=== PATIENT | male | born 1955 | race Caucasian/White ===

== ENCOUNTER 2017-03-21 14:50 | Inpatient (IN) | payer BC ==
[~2017-03-21] VITALS: Ht 175.3 cm; Wt 127.4 kg
[~2017-03-21 14:50] MED LIST: ADVAIR 100/501 DISK IH; ALBUTEROL SULF8.5 GM IH; BENADRYL25 MG PO; COMBIVENT RESPIM4 GM IH; Cardizem CD,Cartia X PO; DAILY VALUE1 EACH PO; ESSENTIAL DAIL1 EACH PO; FLOMAX0.4 MG PO; FUROSEMIDE40 MG PO; GABAPENTIN100 MG PO; GLUCOPHAGE1000 MG PO; GLUCOPHAGE500 MG PO; Glucophage PO; KLOR-CON 1010 ME1 PO; LANOXIN,DIGI0.125 MG PO; LANTUS 3 M100 UNITS/ SC; LANTUS 3 M100 UNITS1 SC; LASIX20 MG PO; LEVEMIR100 UNIT/2 SC; LITE COAT ASPI325 M1 PO; LOPRESSOR25 MG PO; LOPRESSOR50 MG PO; NEURONTIN300 MG PO; PACERONE200 M1 PO; PAXIL10 MG PO; PERCOCET 5/31 TABLET PO; PRADAXA150 MG PO; PRANDIN1 MG PO; PROTONIX20 MG PO; Percocet 5/325,Endoc PO; ROXICODONE5 MG PO; SIMVASTATIN40 MG PO; TRAZODONE HCL50 MG PO; Tylenol Regular Stre PO; XANAX0.25 MG PO; XANAX0.5 MG PO; ZESTRIL,PRINIVI10 M1 PO; ZESTRIL,PRINIVI40 MG PO; ZESTRIL10 MG PO; ZITHROMAX500 MG PO
[2017-03-21 16:02] LABS: BASE EXCESS -1.7 mEq/L (-3 to +3); BICARBONATE 24.3 mEq/L (22-26); CARBOXY HGB 2.9 % (0-5); PCO2 45 mm Hg (35-45); pH 7.34 (7.35-7.45)
[2017-03-21 16:05] LABS: COMMENTS - BLOOD GASES A+C+; SITE LR
[2017-03-21 16:11] LABS: DEVICE NC; O2 FLOW 4 L/MIN
[2017-03-21 16:17] LABS: EOSINOPHIL (%) 0.8 % (0-5); HEMATOCRIT 38.7 % (38.0-50.0); IMMATURE GRANULOCYTE (%) 0.8 % (0.0-0.7); INSTRUMENT ABS NEUTROPHIL CT 3.7 K/uL; LYMPHOCYTE COUNT 0.7 K/uL (1.0-2.8); MCHC 31.5 G/DL (30.0-36.0); MCV 101.6 FL (86-99); MONOCYTE (%) 6.4 % (3-12); MONOCYTE COUNT 0.3 K/uL (0-0.8); NEUTROPHIL (%) 76.9 % (45-76); NEUTROPHIL COUNT 3.7 K/uL (1.8-6.4); PLATELET COUNT 100 K/uL (156-360); RBC DIS.WIDTH-CV 12.9 % (11.8-14.6); RBC DIS.WIDTH-SD 47.9 % (39-53); RED BLOOD COUNT 3.81 M/uL (4.00-5.50); WHITE BLOOD COUNT 4.8 K/uL (4.1-10.2)
[2017-03-21 16:29] LABS: CHLORIDE 109 mEq/L (99-109); POTASSIUM 5.7 mEq/L (3.7-5.4); SODIUM 140 mEq/L (136-147)
[2017-03-21 16:30] LABS: INTER. NORMALIZED RATIO 1.2
[2017-03-21 16:31] LABS: GLUCOSE 371 mg/dL (70-99)
[2017-03-21 16:32] LABS: ANION GAP 8 MEQ/L (2-14); PTT 29.9 SEC (25-37)
[2017-03-21 16:35] LABS: GFR ESTIMATE (CALCULATED) > 59 mL/min/; UREA NITROGEN (BUN) 32 mg/dL (9-23)
[2017-03-21 16:39] LABS: TROP-I INTERPRETATION NEGATIVE; TROPONIN-I 0.02 ng/mL (0.0-0.30)
[2017-03-21] MEDS ORDERED: VENTOLIN HFA18 GM IH (17:46)
[2017-03-21] MEDS ORDERED: LYRICA75 MG PO (17:46)
[2017-03-21 20:00] VITALS: BP 116/55
[2017-03-21 20:27] LABS: TROP-I INTERPRETATION NEGATIVE; TROPONIN-I 0.03 ng/mL (0.0-0.30)
[2017-03-21 22:24] LABS: POINT-OF-CARE METER ID UU14208750
[2017-03-22] VITALS (7 sets, daily range): BP systolic 112–180; BP diastolic 46–85
[2017-03-22 02:16] LABS: TROP-I INTERPRETATION NEGATIVE; TROPONIN-I 0.04 ng/mL (0.0-0.30)
[2017-03-22 06:39] LABS: POINT-OF-CARE METER ID UU14314084
[2017-03-22 07:12] LABS: HEMATOCRIT 38.9 % (38.0-50.0); MCH 31.2 PG (29.0-34.0); MCHC 30.1 G/DL (30.0-36.0); MCV 103.7 FL (86-99); PLATELET COUNT 103 K/uL (156-360); RBC DIS.WIDTH-CV 12.8 % (11.8-14.6); RBC DIS.WIDTH-SD 48.8 % (39-53); RED BLOOD COUNT 3.75 M/uL (4.00-5.50); WHITE BLOOD COUNT 5.8 K/uL (4.1-10.2)
[2017-03-22 07:30] LABS: ANION GAP 8 MEQ/L (2-14); CHLORIDE 106 MEQ/L (99-109); GFR ESTIMATE (CALCULATED) > 59 mL/min/; GLUCOSE 165 mg/dL (70-99); POTASSIUM 4.4 MEQ/L (3.7-5.4); SAMPLE HEMOLYSIS CHECK 0; SAMPLE ICTERIC CHECK 0; SAMPLE LIPEMIA CHECK 0; SODIUM 140 MEQ/L (136-147); UREA NITROGEN (BUN) 25 mg/dL (9-23)
[2017-03-22 09:36] LABS: ADD MIUA? YES; BILIRUBIN NEGATIVE; BLOOD SMALL; COLOR YELLOW ((YELLOW)); GLUCOSE (STRIP) 50; KETONES NEGATIVE; LEUKOCYTES NEGATIVE; NITRITE NEGATIVE; PROTEIN (STRIP) 30; SPECIFIC GRAVITY 1.012 (1.000-1.030); UROBILINOGEN 0.2 MG/DL (0.2-1.0)
[2017-03-22 09:40] LABS: BACTERIA NONE SEEN /HPF; EPITHELIAL CELLS RARE /HPF; MUCUS TRACE /LPF; RED BLOOD CELLS 0-5 /HPF (0-5); UCUL ADDED? NO; WHITE BLOOD CELLS 0-5 /HPF (0-5)
[2017-03-22 10:01] LABS: INTER. NORMALIZED RATIO 1.2; PROTHROMBIN TIME 13.5 SEC (10.2-12.9)
[2017-03-22 10:04] LABS: PTT 28.8 SEC (25-37)
[2017-03-22 11:50] LABS: POINT-OF-CARE METER ID UU14208750; POINT-OF-CARE USER ID PUTDRM
[2017-03-22 16:16] LABS: POINT-OF-CARE METER ID UU13113698
[2017-03-22 20:45] LABS: POINT-OF-CARE METER ID UU13113698
[2017-03-23 04:00] VITALS: BP 101/54
[2017-03-23 05:47] LABS: EOSINOPHIL (%) 2.1 % (0-5); EOSINOPHIL COUNT 0.1 K/uL (0-0.3); HEMATOCRIT 39.6 % (38.0-50.0); IMMATURE GRANULOCYTE (%) 0.7 % (0.0-0.7); INSTRUMENT ABS NEUTROPHIL CT 3.9 K/uL; LYMPHOCYTE COUNT 0.9 K/uL (1.0-2.8); MCH 33.3 PG (29.0-34.0); MCHC 32.3 G/DL (30.0-36.0); MCV 103.1 FL (86-99); MONOCYTE COUNT 0.6 K/uL (0-0.8); NEUTROPHIL (%) 69.8 % (45-76); NEUTROPHIL COUNT 3.9 K/uL (1.8-6.4); PLATELET COUNT 109 K/uL (156-360); RBC DIS.WIDTH-CV 13.1 % (11.8-14.6); RED BLOOD COUNT 3.84 M/uL (4.00-5.50); WHITE BLOOD COUNT 5.6 K/uL (4.1-10.2)
[2017-03-23 06:15] LABS: ALKALINE PHOSPHATASE 202 IU/L (3-129); ANION GAP 7 MEQ/L (2-14); CHLORIDE 103 MEQ/L (99-109); GFR ESTIMATE (CALCULATED) > 59 mL/min/; GLUCOSE 156 mg/dL (70-99); POTASSIUM 4.2 MEQ/L (3.7-5.4); SAMPLE HEMOLYSIS CHECK 0; SAMPLE ICTERIC CHECK 0; SAMPLE LIPEMIA CHECK 0; SODIUM 141 MEQ/L (136-147); UREA NITROGEN (BUN) 20 mg/dL (9-23)
[2017-03-23 07:18] VITALS: BP 129/61
[2017-03-23 07:56] LABS: POINT-OF-CARE METER ID UU13113698; POINT-OF-CARE USER ID NUTSLF44
[2017-03-23 11:15] VITALS: BP 137/60
[2017-03-23 11:22] LABS: POINT-OF-CARE METER ID UU14174216; POINT-OF-CARE USER ID NUTSLF44
[2017-03-23 16:15] VITALS: BP 170/67
[2017-03-23 16:54] LABS: POINT-OF-CARE METER ID UU13113781; POINT-OF-CARE USER ID NUTSLF44
[2017-03-23 20:15] VITALS: BP 166/72
[2017-03-23 22:02] LABS: POINT-OF-CARE METER ID UU13113781
[2017-03-23 23:00] VITALS: BP 139/64
[2017-03-24 03:30] VITALS: BP 120/61
[2017-03-24 05:20] LABS: BASOPHIL COUNT 0.1 K/uL (0-0.1); EOSINOPHIL (%) 1.8 % (0-5); EOSINOPHIL COUNT 0.1 K/uL (0-0.3); HEMATOCRIT 40.3 % (38.0-50.0); IMMATURE GRANULOCYTE (%) 0.5 % (0.0-0.7); INSTRUMENT ABS NEUTROPHIL CT 4.4 K/uL; LYMPHOCYTE COUNT 0.9 K/uL (1.0-2.8); MCH 31.6 PG (29.0-34.0); MCV 101.8 FL (86-99); MEAN PLAT.VOLUME 11.6 uM^3 (9.0-12.4); MONOCYTE (%) 10.5 % (3-12); MONOCYTE COUNT 0.7 K/uL (0-0.8); NEUTROPHIL (%) 71.7 % (45-76); NEUTROPHIL COUNT 4.4 K/uL (1.8-6.4); PLATELET COUNT 121 K/uL (156-360); RBC DIS.WIDTH-SD 48.6 % (39-53); RED BLOOD COUNT 3.96 M/uL (4.00-5.50); WHITE BLOOD COUNT 6.2 K/uL (4.1-10.2)
[2017-03-24 05:45] LABS: ANION GAP 9 MEQ/L (2-14); CHLORIDE 99 MEQ/L (99-109); GFR ESTIMATE (CALCULATED) > 59 mL/min/; GLUCOSE 154 mg/dL (70-99); POTASSIUM 4.3 MEQ/L (3.7-5.4); SAMPLE HEMOLYSIS CHECK 0; SAMPLE ICTERIC CHECK 0; SAMPLE LIPEMIA CHECK 0; SODIUM 139 MEQ/L (136-147); UREA NITROGEN (BUN) 22 mg/dL (9-23)
[2017-03-24 07:09] VITALS: BP 124/75
[2017-03-24 08:09] LABS: POINT-OF-CARE METER ID UU13113781
[2017-03-24 11:03] LABS: POINT-OF-CARE METER ID UU13113781
[2017-03-24 11:56] VITALS: BP 121/74
[2017-03-24 15:53] VITALS: BP 149/77
[2017-03-24 16:05] LABS: POINT-OF-CARE METER ID UU13113781
[2017-03-24 19:00] VITALS: BP 146/74
[2017-03-24 21:15] LABS: POINT-OF-CARE METER ID UU13113781
[2017-03-24 23:34] VITALS: BP 117/60
[2017-03-25 04:25] VITALS: BP 115/71
[2017-03-25 07:01] VITALS: BP 107/62
[2017-03-25 08:19] LABS: POINT-OF-CARE METER ID UU14314088
[2017-03-25 11:26] VITALS: BP 121/59
[2017-03-25 11:41] LABS: POINT-OF-CARE METER ID UU14314088
[2017-03-25 15:53] VITALS: BP 118/58
[2017-03-25 17:01] LABS: POINT-OF-CARE METER ID UU13113781
[2017-03-25 19:15] VITALS: BP 139/64
[2017-03-25 20:40] LABS: POINT-OF-CARE METER ID UU14174216
[2017-03-26] VITALS (7 sets, daily range): BP systolic 124–148; BP diastolic 56–91
[2017-03-26 05:48] LABS: MCH 33.3 PG (29.0-34.0); MCHC 32.4 G/DL (30.0-36.0); MCV 102.5 FL (86-99); MEAN PLAT.VOLUME 11.9 uM^3 (9.0-12.4); PLATELET COUNT 138 K/uL (156-360); RBC DIS.WIDTH-CV 12.8 % (11.8-14.6); RBC DIS.WIDTH-SD 47.8 % (39-53)
[2017-03-26 06:11] LABS: ANION GAP 10 MEQ/L (2-14); CHLORIDE 96 MEQ/L (99-109); GFR ESTIMATE (CALCULATED) > 59 mL/min/; GLUCOSE 180 mg/dL (70-99); POTASSIUM 4.7 MEQ/L (3.7-5.4); SAMPLE HEMOLYSIS CHECK 0; SAMPLE ICTERIC CHECK 0; SAMPLE LIPEMIA CHECK 0; SODIUM 137 MEQ/L (136-147); UREA NITROGEN (BUN) 31 mg/dL (9-23)
[2017-03-26 07:38] LABS: POINT-OF-CARE METER ID UU14174216
[2017-03-26 11:14] LABS: POINT-OF-CARE METER ID UU14314088
[2017-03-26 16:32] LABS: POINT-OF-CARE METER ID UU14314088
[2017-03-26 21:29] LABS: POINT-OF-CARE METER ID UU14314088
[2017-03-27 03:21] VITALS: BP 95/60
[2017-03-27 06:02] LABS: ANION GAP 11 MEQ/L (2-14); CHLORIDE 94 MEQ/L (99-109); GFR ESTIMATE (CALCULATED) > 59 mL/min/; GLUCOSE 158 mg/dL (70-99); POTASSIUM 4.8 MEQ/L (3.7-5.4); SAMPLE HEMOLYSIS CHECK 0; SAMPLE ICTERIC CHECK 0; SAMPLE LIPEMIA CHECK 0; SODIUM 136 MEQ/L (136-147); UREA NITROGEN (BUN) 32 mg/dL (9-23)
[2017-03-27 08:00] LABS: POINT-OF-CARE METER ID UU14314088
[2017-03-27 08:12] VITALS: BP 105/58
[2017-03-27 11:35] LABS: POINT-OF-CARE METER ID UU14174216; POINT-OF-CARE USER ID ENVKC36
[2017-03-27 11:54] VITALS: BP 120/65
[2017-03-27 15:59] VITALS: BP 108/63
[2017-03-27 16:28] LABS: POINT-OF-CARE METER ID UU14314088; POINT-OF-CARE USER ID ENVKC36
[2017-03-27 19:20] VITALS: BP 111/68
[2017-03-27 21:11] LABS: POINT-OF-CARE METER ID UU14174216
[2017-03-28] VITALS: BP 98/55
[2017-03-28 03:55] VITALS: BP 118/58
[2017-03-28 05:42] LABS: MCHC 31.8 G/DL (30.0-36.0); MCV 100.5 FL (86-99); MEAN PLAT.VOLUME 11.4 uM^3 (9.0-12.4); PLATELET COUNT 151 K/uL (156-360); RBC DIS.WIDTH-CV 12.6 % (11.8-14.6); RBC DIS.WIDTH-SD 47.2 % (39-53); RED BLOOD COUNT 3.88 M/uL (4.00-5.50); WHITE BLOOD COUNT 6.8 K/uL (4.1-10.2)
[2017-03-28 07:57] LABS: POINT-OF-CARE METER ID UU13113698
[2017-03-28 08:18] VITALS: BP 132/72
[2017-03-28 11:30] VITALS: BP 114/58
[2017-03-28 11:39] LABS: POINT-OF-CARE METER ID UU14174216
[2017-03-28 16:13] LABS: POINT-OF-CARE METER ID UU14314088
[2017-03-28 17:25] VITALS: BP 108/62
[2017-03-28 19:15] VITALS: BP 117/60
[2017-03-28 21:11] LABS: POINT-OF-CARE METER ID UU14174216
[2017-03-29 00:01] VITALS: BP 108/53
[2017-03-29 04:05] VITALS: BP 91/52
[2017-03-29 07:51] VITALS: BP 105/68
[2017-03-29 08:06] LABS: POINT-OF-CARE METER ID UU14314088
[2017-03-29 08:43] LABS: HEMATOCRIT 39.9 % (38.0-50.0); MCH 31.3 PG (29.0-34.0); MCHC 31.3 G/DL (30.0-36.0); MEAN PLAT.VOLUME 10.9 uM^3 (9.0-12.4); PLATELET COUNT 147 K/uL (156-360); RBC DIS.WIDTH-CV 12.6 % (11.8-14.6); RBC DIS.WIDTH-SD 46.8 % (39-53); RED BLOOD COUNT 3.99 M/uL (4.00-5.50); WHITE BLOOD COUNT 7.2 K/uL (4.1-10.2)
[2017-03-29 09:18] LABS: ANION GAP 9 MEQ/L (2-14); CHLORIDE 95 MEQ/L (99-109); GFR ESTIMATE (CALCULATED) > 59 mL/min/; GLUCOSE 164 mg/dL (70-99); MAGNESIUM 2.2 mg/dl (1.3-2.7); POTASSIUM 4.8 MEQ/L (3.7-5.4); SAMPLE HEMOLYSIS CHECK 0; SAMPLE ICTERIC CHECK 0; SAMPLE LIPEMIA CHECK 0; SODIUM 135 MEQ/L (136-147); UREA NITROGEN (BUN) 37 mg/dL (9-23)
[2017-03-29] MEDS ORDERED: SPIRIVA RESPIMAT4 GM IH (11:01)
[2017-03-29] MEDS ORDERED: DILTIAZEM 24HR180 MG PO (11:01)
[2017-03-29] MEDS ORDERED: ASPIR-LOW81 MG PO (11:02)
[2017-03-29 11:04] VITALS: BP 130/73
[2017-03-29] MEDS ORDERED: FUROSEMIDE40 MG PO (11:04)
[2017-03-29] MEDS ORDERED: ADVAIR HFA120 INHALA IH (11:04)
[2017-03-29] MEDS ORDERED: LEVEMIR100 UNIT/2 SC (11:06)
[2017-03-29 11:48] LABS: POINT-OF-CARE METER ID UU14314088
== END 2017-03-29 14:58 | disposition home health service (06) | DRG 291 ==
LOC: EME 14:50 → 2EAST 17:02 → EDOF 17:02 → ENRESERV 17:08 → CANRESERV 17:08 → ENRESERV 17:26 → 2EAST 20:15 → ENRESERV 03-22 08:23 → 4EAST 03-22 12:07
PROVIDERS: Emergency Medicine; Hospitalist; Internal Medicine; Physician Assistant
DX: I11.0 Hypertensive heart disease with heart failure (principal); I50.9 Heart failure, unspecified; J96.01 Acute respiratory failure with hypoxia; I48.0 Paroxysmal atrial fibrillation; J44.1 Chronic obstructive pulmonary disease with (acute) exacerbation; I48.92 Unspecified atrial flutter; I49.5 Sick sinus syndrome; E87.5 Hyperkalemia; I44.7 Left bundle-branch block, unspecified; E78.5 Hyperlipidemia, unspecified; E11.9 Type 2 diabetes mellitus without complications; D64.9 Anemia, unspecified; I25.10 Atherosclerotic heart disease of native coronary artery without angina pectoris; K21.9 Gastro-esophageal reflux disease without esophagitis; F32.9 Major depressive disorder, single episode, unspecified; M19.90 Unspecified osteoarthritis, unspecified site; E66.9 Obesity, unspecified; Z68.41 Body mass index [BMI] 40.0-44.9, adult; Z95.3 Presence of xenogenic heart valve; Z79.82 Long term (current) use of aspirin; Z79.84 Long term (current) use of oral hypoglycemic drugs; Z87.891 Personal history of nicotine dependence; Z23 Encounter for immunization
CPT/HCPCS: 36600; 71010; 71020; 80048; 80053; 81003; 82607; 82746; 82803; 82948; 83735; 83880; 84443; 84484; 85025; 85027; 85379; 85610; 85730; 90686; 93005; 93306; 94640; 94640 76; 94760; 94799; 99202; 99281; 99285; J1644; J1815; J1940

== ENCOUNTER 2017-04-02 16:52 | Inpatient (IN) | payer BC ==
[~2017-04-02] VITALS: Ht 170.2 cm; Wt 104.9 kg
[~2017-04-02 16:52] MED LIST changes: +ADVAIR HFA120 INHALA IH; +ASPIR-LOW81 MG PO; +DILTIAZEM 24HR180 MG PO; +LYRICA75 MG PO; +SPIRIVA RESPIMAT4 GM IH; +VENTOLIN HFA18 GM IH
[2017-04-02 17:23] LABS: HEMATOCRIT 33.1 % (38.0-50.0); MCH 32.8 PG (29.0-34.0); MCHC 31.7 G/DL (30.0-36.0); MCV 103.4 FL (86-99); MEAN PLAT.VOLUME 11.7 uM^3 (9.0-12.4); NRBC (%) 0.2 /100 WBC (0-0); RBC DIS.WIDTH-CV 13.3 % (11.8-14.6); RBC DIS.WIDTH-SD 50.3 % (39-53); WHITE BLOOD COUNT 12.2 K/uL (4.1-10.2)
[2017-04-02 17:25] LABS: INTER. NORMALIZED RATIO 1.2; PROTHROMBIN TIME 13.5 SEC (10.2-12.9)
[2017-04-02 17:28] LABS: CHLORIDE 103 mEq/L (99-109); PTT 30.3 SEC (25-37); SODIUM 137 mEq/L (136-147)
[2017-04-02 17:29] LABS: GLUCOSE 215 mg/dL (70-99)
[2017-04-02 17:30] LABS: PLATELET COUNT 217 K/uL (156-360)
[2017-04-02 17:31] LABS: ANION GAP 14 MEQ/L (2-14)
[2017-04-02 17:34] LABS: GFR ESTIMATE (CALCULATED) 41 mL/min/; UREA NITROGEN (BUN) 64 mg/dL (9-23)
[2017-04-02 17:40] LABS: TROP-I INTERPRETATION NEGATIVE; TROPONIN-I 0.04 ng/mL (0.0-0.30)
[2017-04-02] MEDS ORDERED: LEVEMIR100 UNIT/2 SC (19:05)
[2017-04-02 20:13] LABS: CHLORIDE 105 mEq/L (99-109); POTASSIUM 5.8 mEq/L (3.7-5.4); SODIUM 134 mEq/L (136-147)
[2017-04-02 20:15] LABS: GLUCOSE 220 mg/dL (70-99)
[2017-04-02 20:16] LABS: ANION GAP 11 MEQ/L (2-14)
[2017-04-02 20:19] LABS: GFR ESTIMATE (CALCULATED) 36 mL/min/; UREA NITROGEN (BUN) 64 mg/dL (9-23)
[2017-04-02 22:00] VITALS: BP 121/50
[2017-04-02 22:05] VITALS: BP 121/70
[2017-04-02 22:30] VITALS: BP 110/51
[2017-04-02 23:00] VITALS: BP 114/54
[2017-04-02 23:26] LABS: METH RESISTANT S AUREUS PCR NEGATIVE (NEGATIVE)
[2017-04-02 23:30] VITALS: BP 114/40
[2017-04-02 23:32] LABS: PROBE CHECK PASS; SPECIMEN PROCESSING CONTROL PASS
[2017-04-02 23:45] LABS: POINT-OF-CARE METER ID UU13113803
[2017-04-03] VITALS (19 sets, daily range): BP systolic 82–128; BP diastolic 36–54
[2017-04-03 05:22] LABS: POINT-OF-CARE METER ID UU13113748
[2017-04-03 08:49] LABS: ANION GAP 8 MEQ/L (2-14); GFR ESTIMATE (CALCULATED) 36 mL/min/; GLUCOSE 188 mg/dL (70-99); POTASSIUM 5.1 MEQ/L (3.7-5.4); SAMPLE HEMOLYSIS CHECK 0; SAMPLE ICTERIC CHECK 0; SAMPLE LIPEMIA CHECK 0; SODIUM 137 MEQ/L (136-147); UREA NITROGEN (BUN) 75 mg/dL (9-23)
[2017-04-03 08:54] LABS: CHLORIDE 105 MEQ/L (99-109)
[2017-04-03 12:06] LABS: POINT-OF-CARE METER ID UU13113748
[2017-04-04] VITALS (23 sets, daily range): BP systolic 78–130; BP diastolic 29–62
[2017-04-04 05:35] LABS: EOSINOPHIL (%) 1.2 % (0-5); EOSINOPHIL COUNT 0.1 K/uL (0-0.3); HEMATOCRIT 28.5 % (38.0-50.0); IMMATURE GRANULOCYTE (%) 0.9 % (0.0-0.7); IMMATURE GRANULOCYTE COUNT 0.1 K/uL; INSTRUMENT ABS NEUTROPHIL CT 7.5 K/uL; LYMPHOCYTE COUNT 0.7 K/uL (1.0-2.8); MCH 32.8 PG (29.0-34.0); MCHC 31.6 G/DL (30.0-36.0); MEAN PLAT.VOLUME 12.4 uM^3 (9.0-12.4); MONOCYTE (%) 8.5 % (3-12); MONOCYTE COUNT 0.8 K/uL (0-0.8); NEUTROPHIL (%) 81.9 % (45-76); NEUTROPHIL COUNT 7.5 K/uL (1.8-6.4); PLATELET COUNT 161 K/uL (156-360); RBC DIS.WIDTH-CV 13.6 % (11.8-14.6); RBC DIS.WIDTH-SD 51.7 % (39-53); RED BLOOD COUNT 2.74 M/uL (4.00-5.50); WHITE BLOOD COUNT 9.2 K/uL (4.1-10.2)
[2017-04-04 05:36] LABS: INTER. NORMALIZED RATIO 1.4
[2017-04-04 05:38] LABS: PTT 31.1 SEC (25-37)
[2017-04-04 05:58] LABS: ANION GAP 9 MEQ/L (2-14); CHLORIDE 98 MEQ/L (99-109); GFR ESTIMATE (CALCULATED) 34 mL/min/; POTASSIUM 5.2 MEQ/L (3.7-5.4); SAMPLE HEMOLYSIS CHECK 0; SAMPLE ICTERIC CHECK 0; SAMPLE LIPEMIA CHECK 0; SODIUM 132 MEQ/L (136-147); UREA NITROGEN (BUN) 77 mg/dL (9-23)
[2017-04-04 06:01] LABS: GLUCOSE 312 mg/dL (70-99); MAGNESIUM 2.7 mg/dl (1.3-2.7)
[2017-04-04 06:25] LABS: POINT-OF-CARE METER ID UU13113748
[2017-04-04 08:13] LABS: POINT-OF-CARE METER ID UU13113748
[2017-04-04 11:25] LABS: POINT-OF-CARE METER ID UU14162636
[2017-04-04 11:25] LABS: POINT-OF-CARE METER ID UU14162636
[2017-04-04 11:56] LABS: POINT-OF-CARE METER ID UU13113748
[2017-04-04 17:32] LABS: POINT-OF-CARE METER ID UU14208751
[2017-04-05] VITALS (24 sets, daily range): BP systolic 79–157; BP diastolic 38–91
[2017-04-05 01:15] LABS: POINT-OF-CARE METER ID UU14208751
[2017-04-05 06:15] LABS: POINT-OF-CARE METER ID UU13113731
[2017-04-05 06:17] LABS: ANION GAP 8 MEQ/L (2-14); CHLORIDE 102 MEQ/L (99-109); GFR ESTIMATE (CALCULATED) 50 mL/min/; GLUCOSE 286 mg/dL (70-99); MAGNESIUM 2.9 mg/dl (1.3-2.7); SAMPLE HEMOLYSIS CHECK 0; SAMPLE ICTERIC CHECK 0; SAMPLE LIPEMIA CHECK 0; SODIUM 132 MEQ/L (136-147); UREA NITROGEN (BUN) 83 mg/dL (9-23)
[2017-04-05 07:06] LABS: HEMATOCRIT 38.7 % (38.0-50.0); MCH 31.6 PG (29.0-34.0); MCHC 31.5 G/DL (30.0-36.0); MCV 100.3 FL (86-99); RBC DIS.WIDTH-CV 13.5 % (11.8-14.6); RBC DIS.WIDTH-SD 49.2 % (39-53); WHITE BLOOD COUNT 8.1 K/uL (4.1-10.2)
[2017-04-05 07:07] LABS: EOSINOPHIL (%) 1.4 % (0-5); EOSINOPHIL COUNT 0.1 K/uL (0-0.3); IMMATURE GRANULOCYTE (%) 0.9 % (0.0-0.7); IMMATURE GRANULOCYTE COUNT 0.1 K/uL; INSTRUMENT ABS NEUTROPHIL CT 6.6 K/uL; LYMPHOCYTE COUNT 0.5 K/uL (1.0-2.8); MEAN PLAT.VOLUME 12.1 uM^3 (9.0-12.4); MONOCYTE (%) 10.2 % (3-12); MONOCYTE COUNT 0.8 K/uL (0-0.8); NEUTROPHIL (%) 81.3 % (45-76); NEUTROPHIL COUNT 6.6 K/uL (1.8-6.4); PLATELET COUNT 119 K/uL (156-360)
[2017-04-05 07:21] LABS: RED BLOOD COUNT 3.86 M/uL (4.00-5.50)
[2017-04-05 07:22] LABS: HEMATOLOGY COMMENT 1 SMEAR COMPATIBLE
[2017-04-05 12:02] LABS: POINT-OF-CARE METER ID UU13113803
[2017-04-05 13:15] LABS: ANION GAP 8 MEQ/L (2-14); CHLORIDE 104 MEQ/L (99-109); GFR ESTIMATE (CALCULATED) 47 mL/min/; GLUCOSE 330 mg/dL (70-99); POTASSIUM 5.1 MEQ/L (3.7-5.4); SAMPLE HEMOLYSIS CHECK 0; SAMPLE ICTERIC CHECK 0; SAMPLE LIPEMIA CHECK 0; SODIUM 136 MEQ/L (136-147); UREA NITROGEN (BUN) 81 mg/dL (9-23)
[2017-04-05 17:53] LABS: POINT-OF-CARE METER ID UU14314082
[2017-04-05 23:48] LABS: POINT-OF-CARE METER ID UU13113803
[2017-04-06] VITALS (13 sets, daily range): BP systolic 117–191; BP diastolic 42–91
[2017-04-06 06:17] LABS: POINT-OF-CARE METER ID UU14314083
[2017-04-06 07:24] LABS: ANION GAP 6 MEQ/L (2-14); CHLORIDE 102 MEQ/L (99-109); GFR ESTIMATE (CALCULATED) > 59 mL/min/; GLUCOSE 165 mg/dL (70-99); MAGNESIUM 2.7 mg/dl (1.3-2.7); SAMPLE HEMOLYSIS CHECK 0; SAMPLE ICTERIC CHECK 0; SAMPLE LIPEMIA CHECK 0; SODIUM 137 MEQ/L (136-147); UREA NITROGEN (BUN) 67 mg/dL (9-23)
[2017-04-06 07:42] LABS: EOSINOPHIL (%) 2.6 % (0-5); EOSINOPHIL COUNT 0.2 K/uL (0-0.3); HEMATOCRIT 25.8 % (38.0-50.0); IMMATURE GRANULOCYTE (%) 0.9 % (0.0-0.7); IMMATURE GRANULOCYTE COUNT 0.1 K/uL; INSTRUMENT ABS NEUTROPHIL CT 4.6 K/uL; LYMPHOCYTE COUNT 0.4 K/uL (1.0-2.8); MCH 32.7 PG (29.0-34.0); MCHC 31.4 G/DL (30.0-36.0); MEAN PLAT.VOLUME 11.8 uM^3 (9.0-12.4); MONOCYTE (%) 9.1 % (3-12); MONOCYTE COUNT 0.5 K/uL (0-0.8); NEUTROPHIL (%) 79.8 % (45-76); NEUTROPHIL COUNT 4.6 K/uL (1.8-6.4); PLATELET COUNT 136 K/uL (156-360); RBC DIS.WIDTH-CV 13.7 % (11.8-14.6); RBC DIS.WIDTH-SD 50.9 % (39-53); WHITE BLOOD COUNT 5.7 K/uL (4.1-10.2)
[2017-04-06 07:50] LABS: RED BLOOD COUNT 2.48 M/uL (4.00-5.50)
[2017-04-06 12:06] LABS: POINT-OF-CARE METER ID UU14314083
[2017-04-06 18:08] LABS: POINT-OF-CARE METER ID UU14314083
[2017-04-06 21:39] LABS: POINT-OF-CARE METER ID UU14314083
[2017-04-07] VITALS (10 sets, daily range): BP systolic 98–144; BP diastolic 43–77
[2017-04-07 05:41] LABS: HEMATOCRIT 27.3 % (38.0-50.0); MCH 32.7 PG (29.0-34.0); MCHC 31.5 G/DL (30.0-36.0); MCV 103.8 FL (86-99); MEAN PLAT.VOLUME 11.8 uM^3 (9.0-12.4); PLATELET COUNT 162 K/uL (156-360); RBC DIS.WIDTH-CV 13.6 % (11.8-14.6); RBC DIS.WIDTH-SD 51.9 % (39-53); RED BLOOD COUNT 2.63 M/uL (4.00-5.50); WHITE BLOOD COUNT 5.5 K/uL (4.1-10.2)
[2017-04-07 06:15] LABS: ANION GAP 6 MEQ/L (2-14); CHLORIDE 102 MEQ/L (99-109); GFR ESTIMATE (CALCULATED) > 59 mL/min/; GLUCOSE 138 mg/dL (70-99); POTASSIUM 5.2 MEQ/L (3.7-5.4); SAMPLE HEMOLYSIS CHECK 0; SAMPLE ICTERIC CHECK 0; SAMPLE LIPEMIA CHECK 0; SODIUM 139 MEQ/L (136-147); UREA NITROGEN (BUN) 58 mg/dL (9-23)
[2017-04-07 08:58] LABS: POINT-OF-CARE METER ID UU13113731
[2017-04-07 13:16] LABS: POINT-OF-CARE METER ID UU13113731
[2017-04-07 18:03] LABS: POINT-OF-CARE METER ID UU14314088
[2017-04-07 21:43] LABS: POINT-OF-CARE METER ID UU13113781
[2017-04-08 04:12] VITALS: BP 106/49
[2017-04-08 07:41] VITALS: BP 145/63
[2017-04-08 07:42] LABS: POINT-OF-CARE METER ID UU14174216
[2017-04-08 11:08] VITALS: BP 115/65
[2017-04-08 11:37] LABS: POINT-OF-CARE METER ID UU14174216
[2017-04-08 12:08] LABS: ANION GAP 6 MEQ/L (2-14); CHLORIDE 101 MEQ/L (99-109); GFR ESTIMATE (CALCULATED) > 59 mL/min/; GLUCOSE 144 mg/dL (70-99); POTASSIUM 5.5 MEQ/L (3.7-5.4); SAMPLE HEMOLYSIS CHECK 0; SAMPLE ICTERIC CHECK 0; SAMPLE LIPEMIA CHECK 0; SODIUM 136 MEQ/L (136-147); UREA NITROGEN (BUN) 46 mg/dL (9-23)
[2017-04-08 16:39] LABS: POINT-OF-CARE METER ID UU14174216
[2017-04-08 16:51] VITALS: BP 133/63
[2017-04-08 19:46] VITALS: BP 140/65
[2017-04-08 21:03] LABS: POINT-OF-CARE METER ID UU13113781
[2017-04-08 22:47] VITALS: BP 100/49
[2017-04-09 02:58] VITALS: BP 139/65
[2017-04-09 05:00] LABS: CHLORIDE 101 mEq/L (99-109); SODIUM 140 mEq/L (136-147)
[2017-04-09 05:02] LABS: GLUCOSE 117 mg/dL (70-99)
[2017-04-09 05:03] LABS: ANION GAP 11 MEQ/L (2-14)
[2017-04-09 05:06] LABS: GFR ESTIMATE (CALCULATED) > 59 mL/min/
[2017-04-09 05:07] LABS: UREA NITROGEN (BUN) 43 mg/dL (9-23)
[2017-04-09 08:19] LABS: POINT-OF-CARE METER ID UU14174216
[2017-04-09 09:30] VITALS: BP 139/56
[2017-04-09 11:42] LABS: POINT-OF-CARE METER ID UU14314088
[2017-04-09 15:26] LABS: POINT-OF-CARE METER ID UU13113781
[2017-04-09 17:35] VITALS: BP 115/55
[2017-04-09 20:00] VITALS: BP 134/63
[2017-04-09 20:38] LABS: POINT-OF-CARE METER ID UU14314088
[2017-04-09 23:45] VITALS: BP 139/65
[2017-04-10 03:30] VITALS: BP 117/56
[2017-04-10 06:16] LABS: ANION GAP 9 MEQ/L (2-14); CHLORIDE 101 MEQ/L (99-109); GFR ESTIMATE (CALCULATED) > 59 mL/min/; GLUCOSE 115 mg/dL (70-99); POTASSIUM 4.8 MEQ/L (3.7-5.4); SAMPLE HEMOLYSIS CHECK 0; SAMPLE ICTERIC CHECK 0; SAMPLE LIPEMIA CHECK 0; SODIUM 141 MEQ/L (136-147); UREA NITROGEN (BUN) 34 mg/dL (9-23)
[2017-04-10 08:04] VITALS: BP 120/59
[2017-04-10 10:50] VITALS: BP 117/56
[2017-04-10 11:43] LABS: POINT-OF-CARE METER ID UU14174216
[2017-04-10 14:19] VITALS: BP 130/60
[2017-04-10 16:31] LABS: POINT-OF-CARE METER ID UU13113698
[2017-04-10 19:19] VITALS: BP 124/57
[2017-04-10 20:55] LABS: POINT-OF-CARE METER ID UU13113698
[2017-04-10 23:31] VITALS: BP 111/48
[2017-04-11 04:08] VITALS: BP 132/59
[2017-04-11 07:00] LABS: ANION GAP 7 MEQ/L (2-14); CHLORIDE 97 MEQ/L (99-109); GFR ESTIMATE (CALCULATED) > 59 mL/min/; GLUCOSE 87 mg/dL (70-99); POTASSIUM 4.8 MEQ/L (3.7-5.4); SAMPLE HEMOLYSIS CHECK 0; SAMPLE ICTERIC CHECK 0; SAMPLE LIPEMIA CHECK 0; SODIUM 140 MEQ/L (136-147); UREA NITROGEN (BUN) 31 mg/dL (9-23)
[2017-04-11 07:15] VITALS: BP 115/56
[2017-04-11 11:51] LABS: POINT-OF-CARE METER ID UU14174216
[2017-04-11 13:15] VITALS: BP 135/63
[2017-04-11] MEDS ORDERED: FUROSEMIDE40 MG PO (14:17)
[2017-04-11] MEDS ORDERED: NYSTATIN15 GM TP (14:19)
[2017-04-11] MEDS ORDERED: LISINOPRIL2.5 MG PO (14:26)
[2017-04-11 16:41] VITALS: BP 136/60
== END 2017-04-11 17:07 | disposition home health service (06) | DRG 242 ==
LOC: EME 16:52 → 4WEST 19:23 → EDOF 19:23 → ENRESERV 19:32 → 4WEST 21:50 → ENRESERV 04-07 14:14 → 4EAST 04-07 17:18
PROVIDERS: Emergency Medicine; Family Medicine; Hospitalist; Internal Medicine Cardiovascular Disease; Internal Medicine Critical Care Medicine; Physician Assistant Medical; Specialist
PROC: 02H63JZ Insertion of Pacemaker Lead into Right Atrium, Percutaneous Approach (ICD-10-PCS; principal; 2017-04-05)
PROC: 0JH606Z Insertion of Pacemaker, Dual Chamber into Chest Subcutaneous Tissue and Fascia, Open Approach (ICD-10-PCS; principal; 2017-04-05)
PROC: 02HK3JZ Insertion of Pacemaker Lead into Right Ventricle, Percutaneous Approach (ICD-10-PCS; principal; 2017-04-05)
PROC: 3E0102A Introduction of Anti-Infective Envelope into Subcutaneous Tissue, Open Approach (ICD-10-PCS; principal; 2017-04-05)
DX: I44.2 Atrioventricular block, complete (principal); J96.21 Acute and chronic respiratory failure with hypoxia; N17.9 Acute kidney failure, unspecified; I50.32 Chronic diastolic (congestive) heart failure; E87.5 Hyperkalemia; R57.0 Cardiogenic shock; E66.01 Morbid (severe) obesity due to excess calories; I11.0 Hypertensive heart disease with heart failure; E78.5 Hyperlipidemia, unspecified; E11.622 Type 2 diabetes mellitus with other skin ulcer; I27.20 Pulmonary hypertension, unspecified; L97.829 Non-pressure chronic ulcer of other part of left lower leg with unspecified severity; J44.9 Chronic obstructive pulmonary disease, unspecified; I25.10 Atherosclerotic heart disease of native coronary artery without angina pectoris; I48.0 Paroxysmal atrial fibrillation; K59.00 Constipation, unspecified; I45.4 Nonspecific intraventricular block; K21.9 Gastro-esophageal reflux disease without esophagitis; F32.9 Major depressive disorder, single episode, unspecified; D64.9 Anemia, unspecified; D72.829 Elevated white blood cell count, unspecified; E78.00 Pure hypercholesterolemia, unspecified; Z79.82 Long term (current) use of aspirin; Z95.2 Presence of prosthetic heart valve; Z99.81 Dependence on supplemental oxygen; Z86.73 Personal history of transient ischemic attack (TIA), and cerebral infarction without residual deficits; Z87.891 Personal history of nicotine dependence; Z88.0 Allergy status to penicillin; Z80.42 Family history of malignant neoplasm of prostate; Z83.3 Family history of diabetes mellitus
CPT/HCPCS: 71010; 80048; 80048 91; 82948; 83735; 84100; 84484; 85025; 85027; 85610; 85730; 87070; 87075; 87205; 87641; 90686; 93005; 94002; 94640; 94640 76; 94664; 94760; 94799; 97530 GO; 99202; 99281; 99285; A6212; C1785; C1892; C1894; C1898; J0461; J0610; J1200; J1265; J1644; J1815; J1940; J2250; J7030; J7040; J7042; J7050; S0020

== ENCOUNTER 2017-04-23 14:34 | Inpatient (IN) | payer BC ==
[2017-04-23] VITALS (8 sets, daily range): BP systolic 110–139; BP diastolic 48–77
[~2017-04-23] VITALS: Ht 170.2 cm; Wt 119.3 kg
[~2017-04-23 14:34] MED LIST changes: +LISINOPRIL2.5 MG PO; +NYSTATIN15 GM TP
[2017-04-23 15:31] LABS: MCV 106.6 FL (86-99); MEAN PLAT.VOLUME 10.7 uM^3 (9.0-12.4); PLATELET COUNT 148 K/uL (156-360); RBC DIS.WIDTH-CV 15.6 % (11.8-14.6); RBC DIS.WIDTH-SD 60.2 % (39-53); RED BLOOD COUNT 2.44 M/uL (4.00-5.50); WHITE BLOOD COUNT 4.9 K/uL (4.1-10.2)
[2017-04-23 15:33] LABS: BASE EXCESS 6.4 mEq/L (-3 to +3); BICARBONATE 32.5 mEq/L (22-26); CARBOXY HGB 3.9 % (0-5); COMMENTS - BLOOD GASES A+C+; DEVICE NC; METHEMOGLOBIN 0.9 % (0-1.5); O2 FLOW 4 L/MIN; PCO2 55 mm Hg (35-45); PO2 64 mm Hg (80-100); SITE LR; TOTAL RESP RATE 18 resp/min; pH 7.38 (7.35-7.45)
[2017-04-23 15:33] LABS: INTER. NORMALIZED RATIO 1.4; PROTHROMBIN TIME 15.4 SEC (10.2-12.9)
[2017-04-23 15:36] LABS: PTT 31.3 SEC (25-37)
[2017-04-23 15:37] LABS: CHLORIDE 100 mEq/L (99-109); POTASSIUM 5.9 mEq/L (3.7-5.4); SODIUM 137 mEq/L (136-147)
[2017-04-23 15:39] LABS: GLUCOSE 214 mg/dL (70-99)
[2017-04-23 15:41] LABS: ANION GAP 9 MEQ/L (2-14); TOTAL BILIRUBIN 0.6 mg/dL (0.0-1.0)
[2017-04-23 15:43] LABS: ALKALINE PHOSPHATASE 162 IU/L (3-129); GFR ESTIMATE (CALCULATED) 41 mL/min/
[2017-04-23 15:44] LABS: UREA NITROGEN (BUN) 55 mg/dL (9-23)
[2017-04-23 15:50] LABS: TROP-I INTERPRETATION NEGATIVE; TROPONIN-I 0.02 ng/mL (0.0-0.30)
[2017-04-23 17:48] LABS: ADD MIUA? NO; BILIRUBIN NEGATIVE; BLOOD NEGATIVE; COLOR YELLOW ((YELLOW)); GLUCOSE (STRIP) NEGATIVE; KETONES NEGATIVE; LEUKOCYTES NEGATIVE; NITRITE NEGATIVE; PROTEIN (STRIP) NEGATIVE; SPECIFIC GRAVITY 1.009 (1.000-1.030); UCUL ADDED? NO; UROBILINOGEN 0.2 MG/DL (0.2-1.0)
[2017-04-23] MEDS ORDERED: BACTRIM,SEPT1 TABLET PO (19:15)
[2017-04-23 19:25] LABS: DIRECT BILIRUBIN 0.2 mg/dL (0.0-0.3); POTASSIUM 5.4 MEQ/L (3.7-5.4); TOTAL BILIRUBIN 0.8 MG/DL (0.0-1.0)
[2017-04-23 19:31] LABS: ALKALINE PHOSPHATASE 161 IU/L (3-129); URIC ACID 10.7 mg/dL (3.1-9.2)
[2017-04-23] MEDS ORDERED: LASIX40 MG PO (19:37)
[2017-04-23 21:12] LABS: POINT-OF-CARE METER ID UU13113717
[2017-04-23 22:06] LABS: TROP-I INTERPRETATION NEGATIVE; TROPONIN-I 0.03 ng/mL (0.0-0.30)
[2017-04-24] VITALS (8 sets, daily range): BP systolic 104–145; BP diastolic 51–64
[2017-04-24 05:34] LABS: HEMATOCRIT 32.2 % (38.0-50.0); MCH 31.3 PG (29.0-34.0); MCHC 30.1 G/DL (30.0-36.0); MCV 103.9 FL (86-99); MEAN PLAT.VOLUME 10.9 uM^3 (9.0-12.4); PLATELET COUNT 147 K/uL (156-360); RBC DIS.WIDTH-CV 15.8 % (11.8-14.6); WHITE BLOOD COUNT 4.4 K/uL (4.1-10.2)
[2017-04-24 05:59] LABS: ANION GAP 7 MEQ/L (2-14); CHLORIDE 100 MEQ/L (99-109); GFR ESTIMATE (CALCULATED) 43 mL/min/; POTASSIUM 4.8 MEQ/L (3.7-5.4); SAMPLE HEMOLYSIS CHECK 0; SAMPLE ICTERIC CHECK 0; SAMPLE LIPEMIA CHECK 0; SODIUM 139 MEQ/L (136-147); UREA NITROGEN (BUN) 50 mg/dL (9-23)
[2017-04-24 06:08] LABS: GLUCOSE 116 mg/dL (70-99)
[2017-04-24 06:14] LABS: TROP-I INTERPRETATION NEGATIVE; TROPONIN-I 0.04 ng/mL (0.0-0.30)
[2017-04-24 07:09] LABS: POINT-OF-CARE METER ID UU14174225
[2017-04-24 16:15] LABS: POINT-OF-CARE METER ID UU13113717
[2017-04-24 20:46] LABS: FERRITIN 209 NG/ML (22-322)
[2017-04-25 03:56] VITALS: BP 127/61
[2017-04-25 06:54] LABS: EOSINOPHIL (%) 0.5 % (0-5); IMMATURE GRANULOCYTE (%) 0.7 % (0.0-0.7); INSTRUMENT ABS NEUTROPHIL CT 3.3 K/uL; LYMPHOCYTE COUNT 0.4 K/uL (1.0-2.8); MCH 32.3 PG (29.0-34.0); MCHC 31.6 G/DL (30.0-36.0); MCV 102.2 FL (86-99); MEAN PLAT.VOLUME 10.8 uM^3 (9.0-12.4); MONOCYTE (%) 7.4 % (3-12); MONOCYTE COUNT 0.3 K/uL (0-0.8); NEUTROPHIL (%) 82.3 % (45-76); NEUTROPHIL COUNT 3.3 K/uL (1.8-6.4); PLATELET COUNT 148 K/uL (156-360); RBC DIS.WIDTH-CV 14.6 % (11.8-14.6); RBC DIS.WIDTH-SD 54.5 % (39-53); RED BLOOD COUNT 3.13 M/uL (4.00-5.50); WHITE BLOOD COUNT 4.1 K/uL (4.1-10.2)
[2017-04-25 07:25] LABS: ANION GAP 6 MEQ/L (2-14); CHLORIDE 97 MEQ/L (99-109); GFR ESTIMATE (CALCULATED) 47 mL/min/; GLUCOSE 333 mg/dL (70-99); POTASSIUM 5.5 MEQ/L (3.7-5.4); SAMPLE HEMOLYSIS CHECK 0; SAMPLE ICTERIC CHECK 0; SAMPLE LIPEMIA CHECK 0; SODIUM 135 MEQ/L (136-147); UREA NITROGEN (BUN) 52 mg/dL (9-23)
[2017-04-25 07:47] VITALS: BP 117/63
[2017-04-25 12:02] LABS: POINT-OF-CARE METER ID UU14188625
[2017-04-25 13:36] LABS: ANION GAP 7 MEQ/L (2-14); CHLORIDE 96 MEQ/L (99-109); GFR ESTIMATE (CALCULATED) 54 mL/min/; GLUCOSE 350 mg/dL (70-99); POTASSIUM 5.5 MEQ/L (3.7-5.4); SAMPLE HEMOLYSIS CHECK 0; SAMPLE ICTERIC CHECK 0; SAMPLE LIPEMIA CHECK 0; SODIUM 135 MEQ/L (136-147); UREA NITROGEN (BUN) 50 mg/dL (9-23)
[2017-04-25 15:42] VITALS: BP 121/73
[2017-04-25 16:10] LABS: POINT-OF-CARE METER ID UU13113717
[2017-04-25 16:10] LABS: POINT-OF-CARE METER ID UU13113717
[2017-04-25 20:58] VITALS: BP 126/60
[2017-04-25 23:47] VITALS: BP 132/61
[2017-04-26 06:53] LABS: EOSINOPHIL (%) 1.6 % (0-5); EOSINOPHIL COUNT 0.1 K/uL (0-0.3); HEMATOCRIT 35.8 % (38.0-50.0); IMMATURE GRANULOCYTE (%) 0.8 % (0.0-0.7); INSTRUMENT ABS NEUTROPHIL CT 3.7 K/uL; LYMPHOCYTE COUNT 0.6 K/uL (1.0-2.8); MCH 31.8 PG (29.0-34.0); MCV 102.6 FL (86-99); MEAN PLAT.VOLUME 10.9 uM^3 (9.0-12.4); MONOCYTE (%) 8.4 % (3-12); MONOCYTE COUNT 0.4 K/uL (0-0.8); NEUTROPHIL (%) 75.5 % (45-76); NEUTROPHIL COUNT 3.7 K/uL (1.8-6.4); PLATELET COUNT 155 K/uL (156-360); RBC DIS.WIDTH-CV 14.5 % (11.8-14.6); RBC DIS.WIDTH-SD 54.5 % (39-53); RED BLOOD COUNT 3.49 M/uL (4.00-5.50); WHITE BLOOD COUNT 4.9 K/uL (4.1-10.2)
[2017-04-26 07:26] LABS: ANION GAP 8 MEQ/L (2-14); CHLORIDE 95 MEQ/L (99-109); GFR ESTIMATE (CALCULATED) 50 mL/min/; GLUCOSE 258 mg/dL (70-99); POTASSIUM 4.7 MEQ/L (3.7-5.4); SAMPLE HEMOLYSIS CHECK 0; SAMPLE ICTERIC CHECK 0; SAMPLE LIPEMIA CHECK 0; SODIUM 136 MEQ/L (136-147); UREA NITROGEN (BUN) 54 mg/dL (9-23)
[2017-04-26 08:09] VITALS: BP 126/62
[2017-04-26 08:59] LABS: POINT-OF-CARE METER ID UU14188625
[2017-04-26 08:59] LABS: POINT-OF-CARE METER ID UU14188625; POINT-OF-CARE USER ID 603211116
[2017-04-26 08:59] LABS: POINT-OF-CARE METER ID UU14188625
[2017-04-26 10:10] LABS: POINT-OF-CARE METER ID UU14188625
[2017-04-26 10:30] VITALS: BP 125/58
[2017-04-26 12:23] LABS: POINT-OF-CARE METER ID UU14188625
[2017-04-26 14:31] LABS: INTERNAL CONTROL VALID? YES
[2017-04-26 16:00] VITALS: BP 138/62
[2017-04-26 17:18] LABS: POINT-OF-CARE METER ID UU13113717
[2017-04-26 21:19] LABS: POINT-OF-CARE METER ID UU14188625
[2017-04-26 21:43] LABS: POINT-OF-CARE METER ID UU14188625
[2017-04-27 00:02] VITALS: BP 141/65
[2017-04-27 06:02] LABS: HEMATOCRIT 37.6 % (38.0-50.0); MCH 32.2 PG (29.0-34.0); MCHC 31.6 G/DL (30.0-36.0); MCV 101.6 FL (86-99); MEAN PLAT.VOLUME 10.8 uM^3 (9.0-12.4); PLATELET COUNT 167 K/uL (156-360); RBC DIS.WIDTH-CV 14.2 % (11.8-14.6); RBC DIS.WIDTH-SD 52.9 % (39-53); WHITE BLOOD COUNT 5.3 K/uL (4.1-10.2)
[2017-04-27 06:40] LABS: ANION GAP 9 MEQ/L (2-14); CHLORIDE 94 MEQ/L (99-109); GFR ESTIMATE (CALCULATED) 50 mL/min/; GLUCOSE 137 mg/dL (70-99); POTASSIUM 4.5 MEQ/L (3.7-5.4); SAMPLE HEMOLYSIS CHECK 0; SAMPLE ICTERIC CHECK 0; SAMPLE LIPEMIA CHECK 0; SODIUM 139 MEQ/L (136-147); UREA NITROGEN (BUN) 53 mg/dL (9-23)
[2017-04-27 07:44] LABS: POINT-OF-CARE METER ID UU13113717
[2017-04-27 08:00] VITALS: BP 115/59
[2017-04-27 10:51] VITALS: BP 119/65
[2017-04-27 12:04] LABS: POINT-OF-CARE METER ID UU14174225
[2017-04-27 17:40] VITALS: BP 127/57
[2017-04-27 21:08] LABS: POINT-OF-CARE METER ID UU14188625
[2017-04-27 23:58] VITALS: BP 127/66
[2017-04-28 06:29] LABS: HEMATOCRIT 39.9 % (38.0-50.0); MCH 32.1 PG (29.0-34.0); MCHC 31.8 G/DL (30.0-36.0); MCV 100.8 FL (86-99); MEAN PLAT.VOLUME 10.5 uM^3 (9.0-12.4); PLATELET COUNT 153 K/uL (156-360); RBC DIS.WIDTH-CV 13.8 % (11.8-14.6); RBC DIS.WIDTH-SD 51.2 % (39-53); RED BLOOD COUNT 3.96 M/uL (4.00-5.50); WHITE BLOOD COUNT 5.5 K/uL (4.1-10.2)
[2017-04-28 06:57] LABS: ANION GAP 8 MEQ/L (2-14); CHLORIDE 93 MEQ/L (99-109); GFR ESTIMATE (CALCULATED) 50 mL/min/; GLUCOSE 149 mg/dL (70-99); SAMPLE HEMOLYSIS CHECK 0; SAMPLE ICTERIC CHECK 0; SAMPLE LIPEMIA CHECK 0; SODIUM 139 MEQ/L (136-147); UREA NITROGEN (BUN) 58 mg/dL (9-23)
[2017-04-28 07:36] LABS: POINT-OF-CARE METER ID UU14188625
[2017-04-28 07:41] VITALS: BP 122/71
[2017-04-28 11:37] LABS: POINT-OF-CARE METER ID UU14174225
[2017-04-28] MEDS ORDERED: DOXYCYCLINE HY100 M3 PO (12:31)
[2017-04-28] MEDS ORDERED: PREDNISONE20 MG PO (12:33)
[2017-04-28] MEDS ORDERED: LASIX40 MG PO (12:33)
[2017-04-29 23:13] LABS: POINT-OF-CARE METER ID UU13113717
[2017-04-29 23:13] LABS: POINT-OF-CARE METER ID UU14174225
== END 2017-04-28 17:15 | disposition home health service (06) | DRG 189 ==
LOC: EME 14:34 → 5SOUTH 18:27 → EDOF 18:27 → ENRESERV 18:28 → 5SOUTH 19:51 → ENPENDDIS 04-28 → 5SOUTH 04-28 17:15
PROVIDERS: Emergency Medicine; Hospitalist; Internal Medicine; Internal Medicine Cardiovascular Disease; Internal Medicine Nephrology; Physician Assistant Medical
PROC: 30233P1 Transfusion of Nonautologous Frozen Red Cells into Peripheral Vein, Percutaneous Approach (ICD-10-PCS; principal; 2017-04-23)
DX: J96.21 Acute and chronic respiratory failure with hypoxia (principal); I50.33 Acute on chronic diastolic (congestive) heart failure; I13.0 Hypertensive heart and chronic kidney disease with heart failure and stage 1 through stage 4 chronic kidney disease, or unspecified chronic kidney disease; L03.116 Cellulitis of left lower limb; N17.9 Acute kidney failure, unspecified; J44.1 Chronic obstructive pulmonary disease with (acute) exacerbation; E83.119 Hemochromatosis, unspecified; G47.33 Obstructive sleep apnea (adult) (pediatric); D55.0 Anemia due to glucose-6-phosphate dehydrogenase [G6PD] deficiency; I48.0 Paroxysmal atrial fibrillation; E78.5 Hyperlipidemia, unspecified; I49.5 Sick sinus syndrome; I44.2 Atrioventricular block, complete; N18.3 Chronic kidney disease, stage 3 (moderate); E11.65 Type 2 diabetes mellitus with hyperglycemia; I25.10 Atherosclerotic heart disease of native coronary artery without angina pectoris; M19.90 Unspecified osteoarthritis, unspecified site; K74.60 Unspecified cirrhosis of liver; I27.20 Pulmonary hypertension, unspecified; E87.5 Hyperkalemia; D69.6 Thrombocytopenia, unspecified; Z68.41 Body mass index [BMI] 40.0-44.9, adult; E66.01 Morbid (severe) obesity due to excess calories; Z86.73 Personal history of transient ischemic attack (TIA), and cerebral infarction without residual deficits; Z95.0 Presence of cardiac pacemaker; Z87.891 Personal history of nicotine dependence; Z86.74 Personal history of sudden cardiac arrest; Z79.82 Long term (current) use of aspirin; Z99.81 Dependence on supplemental oxygen; Z91.19 Patient's noncompliance with other medical treatment and regimen; Z82.5 Family history of asthma and other chronic lower respiratory diseases; Z83.3 Family history of diabetes mellitus; Z95.2 Presence of prosthetic heart valve
CPT/HCPCS: 36600; 71010; 71020; 76770; 80048; 80048 91; 80053; 80076; 81003; 82272; 82436; 82607; 82728; 82746; 82803; 82948; 82955 90; 83880; 84132 91; 84133; 84300; 84466; 84484; 84550; 85025; 85027; 85610; 85730; 86850; 86900; 86901; 86920; 89190; 93005; 93970; 94640; 94640 76; 94799; 99202; 99281; 99285; J1650; J1815; J1940; J7050; J7512; P9016; P9040

== ENCOUNTER 2017-05-31 14:23 | Inpatient (IN) | payer BC ==
[~2017-05-31] VITALS: Ht 170.2 cm; Wt 115.9 kg
[~2017-05-31 14:23] MED LIST changes: +BACTRIM,SEPT1 TABLET PO; +DOXYCYCLINE HY100 M3 PO; +LASIX40 MG PO; +PRANDIN2 MG PO; +PREDNISONE20 MG PO; +TRAZODONE HCL100 MG PO; -TRAZODONE HCL50 MG PO
[2017-05-31] MEDS ORDERED: NORCO 5/3251 TABLET PO (14:38)
[2017-05-31 14:44] LABS: HEMATOCRIT 32.8 % (38.0-50.0); MCH 32.9 PG (29.0-34.0); MCV 102.8 FL (86-99); MEAN PLAT.VOLUME 10.2 uM^3 (9.0-12.4); NRBC (%) 0.2 /100 WBC (0-0); PLATELET COUNT 154 K/uL (156-360); RBC DIS.WIDTH-CV 15.7 % (11.8-14.6); RBC DIS.WIDTH-SD 59.5 % (39-53); RED BLOOD COUNT 3.19 M/uL (4.00-5.50); WHITE BLOOD COUNT 17.6 K/uL (4.1-10.2)
[2017-05-31 14:53] LABS: CHLORIDE 100 mEq/L (99-109); POTASSIUM 5.2 mEq/L (3.7-5.4); SODIUM 134 mEq/L (136-147)
[2017-05-31 14:54] LABS: GLUCOSE 111 mg/dL (70-99)
[2017-05-31 14:56] LABS: ANION GAP 12 MEQ/L (2-14)
[2017-05-31 14:58] LABS: GFR ESTIMATE (CALCULATED) 47 mL/min/ (58.99-99999)
[2017-05-31 14:59] LABS: UREA NITROGEN (BUN) 40 mg/dL (9-23)
[2017-05-31 15:05] LABS: TROP-I INTERPRETATION NEGATIVE; TROPONIN-I 0.04 ng/mL (0.0-0.30)
[2017-05-31] MEDS ORDERED: SPIRIVA RESPIMAT4 GM IH (16:33)
[2017-05-31] MEDS ORDERED: LASIX40 MG PO (16:34)
[2017-05-31] MEDS ORDERED: NYSTATIN15 GM TP (16:34)
[2017-05-31] MEDS ORDERED: SIMVASTATIN40 MG PO (16:35)
[2017-05-31] MEDS ORDERED: METFORMIN HCL1000 MG PO (16:35)
[2017-05-31] MEDS ORDERED: COLACE100 MG PO (16:35)
[2017-05-31] MEDS ORDERED: VENTOLIN HFA18 GM IH (16:35)
[2017-05-31 18:56] VITALS: BP 95/42
[2017-05-31 19:36] VITALS: BP 94/44
[2017-05-31 21:14] LABS: TROP-I INTERPRETATION NEGATIVE; TROPONIN-I 0.04 ng/mL (0.0-0.30)
[2017-05-31 21:44] LABS: POINT-OF-CARE METER ID UU14208753
[2017-05-31 23:34] VITALS: BP 83/43
[2017-06-01] VITALS (7 sets, daily range): BP systolic 93–131; BP diastolic 44–56
[2017-06-01 03:14] LABS: TROP-I INTERPRETATION NEGATIVE; TROPONIN-I 0.03 ng/mL (0.0-0.30)
[2017-06-01 07:31] LABS: POINT-OF-CARE METER ID UU14188577
[2017-06-01 07:44] LABS: ANION GAP 10 MEQ/L (2-14); CHLORIDE 100 MEQ/L (99-109); GFR ESTIMATE (CALCULATED) 43 mL/min/ (58.99-99999); POTASSIUM 4.7 MEQ/L (3.7-5.4); SAMPLE HEMOLYSIS CHECK 0; SAMPLE ICTERIC CHECK 0; SAMPLE LIPEMIA CHECK 0; SODIUM 132 MEQ/L (136-147); UREA NITROGEN (BUN) 47 mg/dL (9-23)
[2017-06-01 07:49] LABS: GLUCOSE 260 mg/dL (70-99)
[2017-06-01 08:32] LABS: FERRITIN 308 NG/ML (22-322)
[2017-06-01 13:38] LABS: EOSINOPHIL (%) 0.1 % (0-5); HEMATOCRIT 26.7 % (38.0-50.0); IMM.RETIC FRACTION 16.9 % (3-19); IMMATURE GRANULOCYTE (%) 0.8 % (0.0-0.7); IMMATURE GRANULOCYTE COUNT 0.1 K/uL; INSTRUMENT ABS NEUTROPHIL CT 10.9 K/uL; LYMPHOCYTE COUNT 0.8 K/uL (1.0-2.8); MCH 32.5 PG (29.0-34.0); MCHC 30.7 G/DL (30.0-36.0); MEAN PLAT.VOLUME 11.6 uM^3 (9.0-12.4); MONOCYTE (%) 5.4 % (3-12); MONOCYTE COUNT 0.7 K/uL (0-0.8); NEUTROPHIL (%) 86.9 % (45-76); NEUTROPHIL COUNT 10.9 K/uL (1.8-6.4); PLATELET COUNT 117 K/uL (156-360); RBC DIS.WIDTH-CV 15.6 % (11.8-14.6); RBC DIS.WIDTH-SD 61.1 % (39-53); RETIC HGB EQUIVALENT 31.6 (28-36); WHITE BLOOD COUNT 12.5 K/uL (4.1-10.2)
[2017-06-01 13:40] LABS: POINT-OF-CARE METER ID UU14208753
[2017-06-01 13:42] LABS: RED BLOOD COUNT 2.52 M/uL (4.00-5.50); RETICULOCYTE COUNT 9.2 % (0.5-1.8)
[2017-06-01 16:40] LABS: POINT-OF-CARE METER ID UU14208753
[2017-06-01 21:35] LABS: POINT-OF-CARE METER ID UU14117124
[2017-06-02 00:16] VITALS: BP 100/52
[2017-06-02 04:09] VITALS: BP 99/49
[2017-06-02 06:37] LABS: POINT-OF-CARE METER ID UU14149397
[2017-06-02 06:52] LABS: HEMATOCRIT 26.7 % (38.0-50.0); MCH 32.5 PG (29.0-34.0); MCHC 31.1 G/DL (30.0-36.0); MCV 104.7 FL (86-99); MEAN PLAT.VOLUME 11.5 uM^3 (9.0-12.4); PLATELET COUNT 104 K/uL (156-360); RBC DIS.WIDTH-CV 14.8 % (11.8-14.6); RED BLOOD COUNT 2.55 M/uL (4.00-5.50); WHITE BLOOD COUNT 6.7 K/uL (4.1-10.2)
[2017-06-02 07:18] LABS: ANION GAP 6 MEQ/L (2-14); CHLORIDE 103 MEQ/L (99-109); GFR ESTIMATE (CALCULATED) > 59 mL/min/ (58.99-99999); GLUCOSE 150 mg/dL (70-99); POTASSIUM 4.5 MEQ/L (3.7-5.4); SAMPLE HEMOLYSIS CHECK 0; SAMPLE ICTERIC CHECK 0; SAMPLE LIPEMIA CHECK 0; SODIUM 136 MEQ/L (136-147); UREA NITROGEN (BUN) 34 mg/dL (9-23)
[2017-06-02 08:22] VITALS: BP 113/54
[2017-06-02 12:08] VITALS: BP 103/51
[2017-06-02 12:16] LABS: POINT-OF-CARE METER ID UU14117124
[2017-06-02 15:52] VITALS: BP 121/55
[2017-06-02 17:05] LABS: POINT-OF-CARE METER ID UU14117124
[2017-06-02 20:14] VITALS: BP 125/57
[2017-06-02 21:57] LABS: POINT-OF-CARE METER ID UU14149397
[2017-06-03 00:01] VITALS: BP 106/53
[2017-06-03 03:28] VITALS: BP 109/54
[2017-06-03 06:11] LABS: HEMATOCRIT 27.2 % (38.0-50.0); MCHC 29.8 G/DL (30.0-36.0); MCV 104.2 FL (86-99); MEAN PLAT.VOLUME 11.1 uM^3 (9.0-12.4); PLATELET COUNT 134 K/uL (156-360); RBC DIS.WIDTH-CV 14.8 % (11.8-14.6); RBC DIS.WIDTH-SD 56.7 % (39-53); RED BLOOD COUNT 2.61 M/uL (4.00-5.50); WHITE BLOOD COUNT 5.7 K/uL (4.1-10.2)
[2017-06-03 06:35] LABS: POINT-OF-CARE METER ID UU14117124
[2017-06-03 06:38] LABS: ANION GAP 8 MEQ/L (2-14); CHLORIDE 103 MEQ/L (99-109); GFR ESTIMATE (CALCULATED) > 59 mL/min/ (58.99-99999); GLUCOSE 142 mg/dL (70-99); POTASSIUM 4.4 MEQ/L (3.7-5.4); SAMPLE HEMOLYSIS CHECK 0; SAMPLE ICTERIC CHECK 0; SAMPLE LIPEMIA CHECK 0; SODIUM 138 MEQ/L (136-147); UREA NITROGEN (BUN) 33 mg/dL (9-23)
[2017-06-03 07:47] VITALS: BP 100/47
[2017-06-03 11:49] VITALS: BP 106/51
[2017-06-03 11:54] LABS: POINT-OF-CARE METER ID UU14117124
[2017-06-03 15:41] VITALS: BP 136/60; BP 199/90
[2017-06-03 16:45] LABS: POINT-OF-CARE METER ID UU14149397
[2017-06-03 20:29] VITALS: BP 135/61
[2017-06-03 21:06] LABS: POINT-OF-CARE METER ID UU14117124
[2017-06-04 00:11] VITALS: BP 103/47
[2017-06-04 04:08] VITALS: BP 95/39
[2017-06-04 06:10] LABS: POINT-OF-CARE METER ID UU14149397
[2017-06-04 07:59] VITALS: BP 127/58
[2017-06-04 08:37] LABS: INTERNAL CONTROL VALID? YES
[2017-06-04] MEDS ORDERED: SPIRIVA RESPIMAT4 GM IH (11:17)
[2017-06-04] MEDS ORDERED: LEVAQUIN750 MG PO (11:17)
[2017-06-04 11:31] VITALS: BP 135/60
[2017-06-04 11:40] LABS: POINT-OF-CARE METER ID UU14117124
== END 2017-06-04 13:30 | disposition home or self-care (01) | DRG 871 ==
LOC: EME 14:23 → EDOF 16:15 → 3EAST 16:15 → ENRESERV 16:34 → 3EAST 18:12
PROVIDERS: Emergency Medicine; Hospitalist; Internal Medicine; Physician Assistant
DX: A41.9 Sepsis, unspecified organism (principal); J96.21 Acute and chronic respiratory failure with hypoxia; J18.9 Pneumonia, unspecified organism; E87.1 Hypo-osmolality and hyponatremia; E87.2 Acidosis; I11.0 Hypertensive heart disease with heart failure; I50.32 Chronic diastolic (congestive) heart failure; I48.0 Paroxysmal atrial fibrillation; J44.0 Chronic obstructive pulmonary disease with (acute) lower respiratory infection; E11.9 Type 2 diabetes mellitus without complications; E78.5 Hyperlipidemia, unspecified; I25.10 Atherosclerotic heart disease of native coronary artery without angina pectoris; Y95 Nosocomial condition; E66.01 Morbid (severe) obesity due to excess calories; Z68.41 Body mass index [BMI] 40.0-44.9, adult; Z79.4 Long term (current) use of insulin; Z95.0 Presence of cardiac pacemaker; Z95.2 Presence of prosthetic heart valve; Z99.81 Dependence on supplemental oxygen; Z87.891 Personal history of nicotine dependence; Z86.73 Personal history of transient ischemic attack (TIA), and cerebral infarction without residual deficits; F32.9 Major depressive disorder, single episode, unspecified
CPT/HCPCS: 71010; 71250; 80048; 82607; 82728; 82746; 82948; 83605; 83880; 84484; 85025; 85027; 85045; 87040; 87070; 87205; 87449; 87502; 93005; 94640; 94640 76; 94760; 94799; 99202; 99281; 99285; J0456; J1644; J1815; J1940; J1956; J2543; J3370; J7030; J7040; J7050; J7120; J7644